=== PATIENT | male | born 1965 | race Caucasian/White ===

== ENCOUNTER 2024-01-16 01:54 | Emergency (ER) | payer BC ==
[~2024-01-16] VITALS: Ht 177.8 cm; Wt 68.0 kg
[2024-01-16] MEDS ORDERED: LIDOCAINE 1%-EPI 1:100,000 20 ML VIAL ONE (02:11)
[2024-01-16] MEDS ORDERED: CEFTRIAXONE 1 G VIAL ONE (02:11)
[2024-01-16] MEDS ORDERED: LIDOCAINE HCL 1% 20 ML VIAL ONE (02:11)
[2024-01-16] MEDS ORDERED: SODIUM BICARBONATE 4.2 % (NEUT) 5 ML VIAL ONE (02:17)
[2024-01-16] MEDS ORDERED: TDAP DIPH,PERTUSS,TET VAC/PF 0.5 ML DISP.SYRIN IM ONE (02:19)
[2024-01-16] MEDS: TDAP DIPH,PERTUSS,TET VAC/PF 0.5 ML DISP.SYRIN IM ONE (02:31)
[2024-01-16] MEDS: LIDOCAINE 1%-EPI 1:100,000 20 ML VIAL IJ ONE (02:31)
[2024-01-16] MEDS: SODIUM BICARBONATE 4.2 % (NEUT) 5 ML VIAL TP ONE (02:32)
[2024-01-16] MEDS ORDERED: CEPH500T PO (02:55)
[2024-01-16] MEDS: CEFTRIAXONE 1 G VIAL IM ONE (03:08)
[2024-01-16 03:09] VITALS: BP 115/72; TEMP 98.6; O2SAT 99
== END 2024-01-16 03:10 | disposition home or self-care (01) ==
LOC: ER 02:04
DX: S81.011A Laceration without foreign body, right knee, initial encounter (principal); S00.83XA Contusion of other part of head, initial encounter; Z79.899 Other long term (current) drug therapy; W18.39XA Other fall on same level, initial encounter; Y93.89 Activity, other specified; Y92.89 Other specified places as the place of occurrence of the external cause; Y99.8 Other external cause status
CPT/HCPCS: 12032; 73564; 90471; 90715; 96372; 99284; J0696; J3490; A4606; A4663